=== PATIENT | female | born 2000 | race Caucasian/White ===

== ENCOUNTER → 2021-09-24 12:06 | Outpatient (CLI) | payer OTHER, SELFPAY ==
--- NOTE | 2021-09-24 | DI.US.S_ITS ---
PROCEDURE: US OB >= 14 WEEKS FETUS INDICATIONS: 20 Week Anatomy Scan OUTSIDE/PRIOR DATING DATA: Last menstrual period (LMP): 05/07/21. LMP-based estimated date of delivery (JERONIMO): 02/11/22. First dating scan (date and location): Unknown. Estimated date of delivery (JERONIMO) from first dating scan: Not applicable. The calculations are made using the LMP JERONIMO of 02/11/22. TECHNIQUE: Real-time scanning was performed of the fetus, with image documentation and biometric measurements. Endovaginal scanning: Not performed COMPARISON: None. FINDINGS: General: A single living intrauterine gestation is present. Presentation: Breech. Placenta: Placental position is anterior , without previa. Placental edge is 2.1 cm away from the internal cervical os, borderline normal. Amniotic fluid index: 13 cm, normal range is 5-24 cm. Single deepest vertical pocket is 4.2 cm. heart rate: 145 beats per minute. Maternal cervical canal: Closed and 4.3 cm long. Normal lower limit is 2.5 cm. biometrics: Biparietal diameter: 4.5 cm, 19 weeks, five days Head circumference: 17.1 cm, 19 weeks, five days Abdominal circumference: 15.2 cm, 20 weeks, three days Femur length: 3.2 cm, 20 weeks, 0 days Clinically estimated gestational age: 20 weeks, 0 days Composite gestational age from present scan: 20 weeks, 0 days Estimated weight and percentile: 336 g, 55th percentile Anatomic survey: Neuro: Ventricles are non-dilated at less than 10 mm. Cisterna magna is normal at 3-11 mm. Cerebellum is normal in size and morphology. Nuchal skin fold: Normal at less than 6 mm between 14-21 weeks gestational age. Face: Nose and lips, facial profile are normal. Spine: No evidence for spina bifida. Heart: 4-chambered heart is present. Suboptimal imaging of cardiac outflow tracts. Diaphragm: Diaphragm is intact. Stomach: Left-sided stomach is present. Kidneys: No hydronephrosis. Normal is less than 5 mm in 2nd trimester, less than 7 mm in 3rd trimester. Cord: 3-vessel cord has orthotopic insertion. Bladder: Normal in size. Extremities: All 4 extremities identified. IMPRESSION: 1. Single living intrauterine with appropriate growth. 2. Suboptimal imaging of the cardiac outflow tracts. Otherwise normal anatomy. 3. Follow-up imaging to reassess cardiac outflow tracts is recommended in one week. 4. Anterior placental edge is 2.1 cm away from the internal cervical os. Although this is not considered low lying, reassessment is recommended given borderline measurement. We strive to produce accurate, complete, and clear reports of imaging services. To assist us in improving patient care, this report was composed using standard report templates and voice recognition software. Therefore, it may contain abnormal punctuation, insertions and/or omissions. Occasional wrong-word or sound-alike substitutions may occur. Though we review the report and make efforts to correct it, we do recommend that the report be read carefully in proper context to recognize any text inaccuracies. Dictated by: Tricia Conrad M.D. on 09/24/2021 at 16:25 Approved by: Tricia Conrad M.D. on 09/24/2021 at 16:32
== END ==
PROVIDERS: Referring Provider Nurse Practitioner Obstetrics & Gynecology; Visit Provider Nurse Practitioner Obstetrics & Gynecology
DX: Z36.89 Encounter for other specified antenatal screening (principal); Z3A.20 20 weeks gestation of pregnancy
CPT/HCPCS: 76811

== ENCOUNTER → 2021-10-07 11:39 | Outpatient (CLI) | payer OTHER, SELFPAY ==
--- NOTE | 2021-10-07 11:41 | DI.US.S_ITS ---
PROCEDURE: US OB FOLLOW UP INDICATIONS: CARDIAC OUTFLOW TRACTS OUTSIDE/PRIOR DATING DATA: Last menstrual period (LMP): 05/07/2021. LMP-based estimated date of delivery (JERONIMO): 02/11/2022. TECHNIQUE: Real-time scanning was performed of the fetus, with image documentation and biometric measurements. COMPARISON: [facility], OB >= 14 WEEKS FETUS, 09/24/2021, 12:22. FINDINGS: General: A single living intrauterine gestation is present. Presentation: Breech. Placenta: Placental position is anterior , without previa. Amniotic fluid index: 14.6 cm, normal range is 5-24 cm. Single deepest vertical pocket is 4.0 cm. heart rate: 145 beats per minute. Maternal cervical canal: 4.6 cm long. Normal lower limit is 2.5 cm. biometrics: Clinically estimated gestational age: 21 week 6 day Anatomic survey: Cardiac four-chamber view, outflow tracks as well as of both kidneys are well visualized IMPRESSION: Single live intrauterine consistent with a 21 week 6 day gestation. cardiac four-chamber view and outflow tracks are well visualized and normal. Placental edge is now 2.5 cm from the internal os Approved by: Doni Arita M.D. on 10/07/2021 at 15:18
== END ==
PROVIDERS: Referring Provider Nurse Practitioner Obstetrics & Gynecology; Visit Provider Nurse Practitioner Obstetrics & Gynecology
DX: Z34.92 Encounter for supervision of normal pregnancy, unspecified, second trimester (principal); Z3A.22 22 weeks gestation of pregnancy
CPT/HCPCS: 76816